=== PATIENT | female | born 1980 | race Caucasian/White ===

== ENCOUNTER 2020-10-22 11:05 | Outpatient (CLI) | payer OTHER, SELFPAY | END 2020-10-22 11:06 | disposition home or self-care (01) | LOC: ANHCOVIDVC 11:05 | PROVIDERS: PCP Family Medicine | DX: Z23 Encounter for immunization (principal) | CPT/HCPCS: 0001A; 91300 ==

== ENCOUNTER 2020-11-12 10:59 | Outpatient (CLI) | payer OTHER, SELFPAY | END 2020-11-12 11:00 | disposition home or self-care (01) | LOC: ANHCOVIDVC 10:59 | PROVIDERS: PCP Family Medicine | DX: Z23 Encounter for immunization (principal) | CPT/HCPCS: 0002A; 91300 ==

== ENCOUNTER → 2021-10-21 12:12 | Outpatient (CLI) | payer OTHER, SELFPAY ==
--- NOTE | ~2021-10-21 | MR_ITS ---
EXAMINATION: MR brain/brain stem wo con DATE: 10/21/2021 12:54 INDICATION: Unspecified optic neuritis. TECHNIQUE: Magnetic resonance imaging (MRI) of the brain and brainstem was performed without intraven ous contrast. Sequences included sagittal and axial T1-weighted FSE, axial diffusion-weighted FS EPI, axial T2*-weighted GRE, axial T2-weighted FLAIR Propeller, and axial T2-weighted Propeller. Apparent diffusion coefficient (ADC) maps were created. COMPARISON: None. FINDINGS: There is no intracranial hemorrhage, acute infarction, or abnormal intracranial mass lesion . The ventricles are normal in size. The orbits are normal. The paranasal sinuses are clear. The mast oid air cells are normal. IMPRESSION: 1. Normal brain. Reviewed, dictated and finalized at location A. IMPRESSION: 1. Normal brain.
== END ==
PROVIDERS: PCP Family Medicine; Visit Provider Family Medicine
DX: H46.9 Unspecified optic neuritis (principal); G43.109 Migraine with aura, not intractable, without status migrainosus; H15.001 Unspecified scleritis, right eye
CPT/HCPCS: 70551

== ENCOUNTER → 2023-05-20 11:21 | Outpatient (CLI) | payer OTHER, SELFPAY ==
--- NOTE | ~2023-05-20 | US_ITS ---
EXAMINATION: US venous doppler UE LT DATE: 05/20/2023 12:03 INDICATION: Other specified soft tissue disorders, upper extremity swelling TECHNIQUE: Grayscale ultrasound images without and with compression and Doppler ultrasound images of the left upper extremity veins were obtained. COMPARISON: 11/25/2016. FINDINGS: The left internal jugular vein, subclavian vein, axillary vein, brachial veins, basilic vein, cephali c vein, radial vein, and ulnar vein are patent. IMPRESSION: 1. No evidence of deep venous thrombosis. Reviewed, dictated and finalized at location B. 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
== END ==
PROVIDERS: PCP Nurse Practitioner Family; Visit Provider Nurse Practitioner Family
DX: M79.89 Other specified soft tissue disorders (principal)
CPT/HCPCS: 93971

== ENCOUNTER 2024-03-30 11:57 | Outpatient (CLI) | payer OTHER, SELFPAY ==
--- NOTE | ~2024-03-30 | XR_ITS ---
XR wrist LT w scaphoid Ordering provider: Santiago Anderson NP History: . M79.89 - Other specified soft tissue disorders . Comparison: None. FINDINGS: BONES: Lucency is seen in the neck of the scaphoid bone which may indicate a fracture. Follow-up in 1 0 days is advised. Otherwise, No acute fracture or dislocation. No definite scaphoid fracture. JOINT SPACES: Well maintained. SOFT TISSUES: Normal. IMPRESSION: Lucency in the neck of the scaphoid bone which may indicate a fracture. Clinical correlation and foll ow-up advised. Otherwise, No acute osseous abnormality left wrist. Reviewed, dictated and finalized at location A. IMPRESSION: Lucency in the neck of the scaphoid bone which may indicate a fracture. Clinica l correlation and follow-up advised. Otherwise, No acute osseous abnormality le ft wrist.
--- NOTE | ~2024-03-30 | XR_ITS ---
XR hand LT min 3V Ordering provider: Santiago Anderson NP History: . M79.89 - Other specified soft tissue disorders . Comparison: None. FINDINGS: BONES: Lucency seen in the scaphoid bone. Otherwise, No definite acute fracture or dislocation. JOINT SPACES: Well maintained. SOFT TISSUES: Unremarkable. IMPRESSION: Lucency seen in the scaphoid bone. Otherwise, No definite acute osseous abnormality left hand. Reviewed, dictated and finalized at location A. IMPRESSION: Lucency seen in the scaphoid bone. Otherwise, No definite acute osseous abnorma lity left hand.
== END 2024-03-30 11:58 | disposition home or self-care (01) ==
PROVIDERS: PCP Family Medicine
DX: M25.532 Pain in left wrist (principal); M79.89 Other specified soft tissue disorders; R93.6 Abnormal findings on diagnostic imaging of limbs
CPT/HCPCS: 73110; 73130

== ENCOUNTER 2025-05-13 09:53 | Outpatient (CLI) | payer OTHER, SELFPAY ==
--- NOTE | ~2025-05-13 | MM_ITS ---
EXAMINATION: MM screening tiffanie BI w jocelynn HISTORY: Screening TECHNIQUE: Craniocaudal and mediolateral oblique 3-D tomosynthesis images were obtained and synthetic 2-D images were generated. CAD analysis was submitted and interpreted. COMPARISON: Comparison to multiple prior studies sequentially, with oldest reviewed study dated , 10/17/2012 BREAST PARENCHYMAL COMPOSITION: The breasts are heterogeneously dense, which may obscure small masses. FINDINGS: There is no evidence of suspicious mass, calcification, or architectural distortion to suggest malignancy in either breast. Biopsy clip in the right breast. IMPRESSION: 1. No mammographic evidence of malignancy. 2. Recommend routine screening mammography in one year. BI-RADS Category 1: Negative Reviewed, dictated and finalized at location B. 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
== END 2025-05-13 09:54 | disposition home or self-care (01) ==
LOC: MICIMG 09:54
PROVIDERS: PCP Family Medicine; Visit Provider Student in an Organized Health Care Education/Training Program
DX: Z12.31 Encounter for screening mammogram for malignant neoplasm of breast (principal)
CPT/HCPCS: 77063; 77067